=== PATIENT | male | born 1945 | race Caucasian/White ===

== ENCOUNTER 2019-02-19 00:38 | Outpatient (CLI) | payer OTHER, SELFPAY ==
--- NOTE | 2019-02-19 08:15 | DI.RAD_ITS ---
SYMPTOM/DIAGNOSIS: LT HIP PAIN, M25.552 LEFT HIP AND PELVIS: No acute fracture or dislocation is seen. The sacroiliac joints and symphysis pubis appear intact. In the left hip, there is mild subchondral sclerosis and joint space narrowing. Similar findings are seen in the right hip. The soft tissues are unremarkable. There are degenerative changes seen in the lumbosacral spine. 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
== END 2019-02-19 00:58 ==
PROVIDERS: PCP Nurse Practitioner Family; Visit Provider Internal Medicine
DX: M25.552 Pain in left hip (principal); M16.0 Bilateral primary osteoarthritis of hip
CPT/HCPCS: 73502

== ENCOUNTER 2019-09-25 10:15 | Outpatient (REF) | payer OTHER, SELFPAY ==
[2019-09-25 12:56] LABS: Anion Gap 10.3 mmol/L (3-11); BUN 38 mg/dL (7-18); CO2 25.7 mmol/L (21.0-32.0); CREATININE 1.01 mg/dL (0.70-1.30); Calcium 9.4 mg/dL (8.5-10.1); Chloride 107 mmol/L (98-107); Glucose 101 mg/dL (74-106); Sodium 143 mmol/L (136-145)
== END 2019-09-25 10:35 ==
LOC: NCHCN 10:15
PROVIDERS: PCP Internal Medicine; Visit Provider Internal Medicine
DX: I10 Essential (primary) hypertension (principal); E78.5 Hyperlipidemia, unspecified; F32.1 Major depressive disorder, single episode, moderate
CPT/HCPCS: 80048

== ENCOUNTER 2020-05-05 00:37 | Outpatient (CLI) | payer OTHER, SELFPAY ==
--- NOTE | 2020-05-05 | DI.US_ITS ---
EXAM: US ABDOMEN and U/S AAA screening CLINICAL HISTORY: ABDOMINAL PAIN R10.9 TECHNIQUE: Ultrasound abdomen performed using standard protocol. COMPARISON: US US AAA SCREENING from 05/05/2020 FINDINGS: ABDOMINAL AORTA AND IVC: Please see below PANCREAS: Normal where visualized. LIVER: Increased echogenicity consistent with fatty liver. Hepatopedal flow in the Portal Vein. GALLBLADDER: No evidence of cholelithiasis. No evidence of wall thickening. No pericholecystic fluid identified. BILIARY SYSTEM: Common bile duct measures 4.2 mm. No intrahepatic biliary ductal dilation. KWON'S SIGN: Negative. KIDNEYS: Kidneys are symmetric in size. No evidence of renal calculi. No evidence of hydronephrosis. No renal mass. 1.1 x 1.0 x 1.3 cm simple cyst in the inferior pole of the left kidney. SPLEEN: Not enlarged. ASCITES: None seen. Abdominal Aorta: Proximal: 2.2 x 2.0 cm Mid: 2.1 x 1.9 cm Distal: 1.9 x 1.7 cm Iliac's: Right: 1.2 x 1.2 cm Left: 1.2 x 1.1 cm Mild atherosclerotic disease is seen. IMPRESSION: 1. Fatty liver. 2. No evidence of an abdominal aortic aneurysm. DATA REPOSITORY:
== END 2020-05-05 00:57 ==
PROVIDERS: PCP Internal Medicine; Visit Provider Internal Medicine
DX: R10.9 Unspecified abdominal pain (principal); Z13.6 Encounter for screening for cardiovascular disorders; K76.0 Fatty (change of) liver, not elsewhere classified; N28.1 Cyst of kidney, acquired; I70.0 Atherosclerosis of aorta
CPT/HCPCS: 76706; 76700

== ENCOUNTER 2020-10-30 13:19 | Outpatient (REF) | payer OTHER, SELFPAY ==
[2020-10-30 14:47] LABS: ALT 30 U/L (16-63); AST 22 U/L (15-37); Albumin 3.7 g/dL (3.4-5.0); Alkaline Phosphatase 58 U/L (46-116); Anion Gap 8.6 mmol/L (3-11); BUN 18 mg/dL (7-18); Bilirubin, Total 0.7 mg/dL (0.2-1.0); CO2 28.4 mmol/L (21.0-32.0); CREATININE 1.04 mg/dL (0.70-1.30); Calcium 9.3 mg/dL (8.5-10.1); Calculated LDL 135 mg/dL (<100); Chloride 108 mmol/L (98-107); Cholesterol 252 mg/dL (<200); Glucose 97 mg/dL (74-106); HDL Cholesterol 98 mg/dL (40-60); Sodium 145 mmol/L (136-145); Total Protein 6.7 g/dL (6.4-8.2); Triglyceride 98 mg/dL (<150)
== END 2020-10-30 13:39 ==
LOC: NCHCN 13:19
PROVIDERS: PCP Internal Medicine; Visit Provider Internal Medicine
DX: Z00.00 Encounter for general adult medical examination without abnormal findings (principal); I10 Essential (primary) hypertension; E78.5 Hyperlipidemia, unspecified; K76.0 Fatty (change of) liver, not elsewhere classified
CPT/HCPCS: 80053; 80061

== ENCOUNTER 2021-05-04 10:35 | Outpatient (CLI) | payer OTHER, MEDICARE, SELFPAY ==
[2021-05-04 10:17] LABS: HCT 42.7 % (40.0-50.0); MCH 32.6 pg (27.0-33.0); MCHC 32.8 % (32.0-36.0); MCV 99.3 fL (80-95); MPV 9.7 fL (8.0-11.0); Platelet Count 200 10^3/uL (130-400); RDW 13.3 % (11.8-14.1); RDW-SD 48.9 fL; WBC 6.59 10^3/uL (4.4-10.8)
[2021-05-04 10:32] LABS: Anion Gap 8.4 mmol/L (3-11); BUN 30 mg/dL (7-18); CO2 29.6 mmol/L (21.0-32.0); CREATININE 1.2 mg/dL (0.70-1.30); Calcium 9.6 mg/dL (8.5-10.1); Chloride 105 mmol/L (98-107); Estimated GFR 59.35 (mL/min/1.73m2); Glucose 116 mg/dL (74-106); Potassium 3.8 mmol/L (3.5-5.1); Sodium 143 mmol/L (136-145)
[2021-05-04 10:39] LABS: Troponin I < 0.05 ng/mL (<0.06)
[2021-05-04 10:56] LABS: D-Dimer 604 ng/mlFEU (<500)
== END 2021-05-04 10:36 | disposition home or self-care (01) ==
PROVIDERS: PCP Internal Medicine; Visit Provider Internal Medicine
DX: I10 Essential (primary) hypertension (principal); E78.5 Hyperlipidemia, unspecified; K21.9 Gastro-esophageal reflux disease without esophagitis; R07.9 Chest pain, unspecified; Z72.0 Tobacco use
CPT/HCPCS: 36415; 80048; 85027; 84484; 85379

== ENCOUNTER 2021-05-04 16:02 | Outpatient (CLI) | payer OTHER, MEDICARE, SELFPAY ==
--- NOTE | 2021-05-04 10:06 | DI.RAD_ITS ---
Exam(s) XR CHEST 2V PA LATERAL EXAM: XR CHEST 2V PA LATERAL CLINICAL HISTORY: CHEST PAIN R07.9. TECHNIQUE: 2D digital imaging was performed. COMPARISON: CT CHEST WITH CONTRAST from 03/19/2016 CT CHEST WITH CONTRAST from 03/19/2016 FINDINGS: Heart size is normal. The mediastinum is not widened. Lungs are clear. No infiltrates nor pleural effusions. There is osseous variant anatomy the upper right rib cage which is developmental. IMPRESSION: No acute pulmonary findings. DATA REPOSITORY: RADIATION DOSE DELIVERED:
== END 2021-05-04 16:22 ==
PROVIDERS: PCP Internal Medicine; Visit Provider Internal Medicine
DX: R07.9 Chest pain, unspecified (principal)
CPT/HCPCS: 71046

== ENCOUNTER 2021-05-05 14:44 | Outpatient (CLI) | payer OTHER, MEDICARE, SELFPAY ==
--- NOTE | 2021-05-05 | DI.CT_ITS ---
Exam(s) CT CHEST PE CTA EXAM: CT CHEST PE CTA CLINICAL HISTORY: CHEST PAIN R07.9, ELEVATED D DIMER. TECHNIQUE: Imaging Protocol: Axial CT angiography was performed with multi-slice acquisition and mu lti-planar and/or 3D reconstructions. CONTRAST MATERIAL: Intravenous: Omnipaque 350 Contrast volume: 100 COMPARISON: CT CHEST - LUNG CANCER SCREENING from 03/08/2016 CT CHEST - LUNG CANCER SCREENING from 03/08/2016 CT CHEST WITH CONTRAST from 03/19/2016 CR XR CHEST 2V PA LATERAL from 05/04/2021 CR XR CHEST 2V PA LATERAL from 05/04/2021 FINDINGS: Pulmonary Arteries: No evidence of filling defect to suggest pulmonary emboli. Tracheobronchial tree: Patent where visualized. Mediastinum and Milady: Calcified left hilar lymph nodes, unchanged. No new adenopathy. Pulmonary parenchyma: No consolidation or dominant measurable mass. Expiratory changes. Pleura: No effusion or pneumothorax. Heart: Mild left ventricular and left atrial enlargement.. Mild coronary artery calcifications are s een. Aorta: Thoracic aorta non-dilated. Minimal calcification. Upper abdomen: Unremarkable. Bones: Right 2nd rib deformity. Degenerative disc changes. IMPRESSION: No evidence of pulmonary embolism or other acute abnormality.. RADIATION DOSE DELIVERED: 367.32mGy.cm Total DLP DATA REPOSITORY: All CT scans at this facility are submitted to the National Radiology Data Registry (NRDR) Dose Index Registry (DIR) with the [employer] (ACR). RADIATION OPTIMIZATION: All CT scans at this facility use at least one of these dose optimization te chniques: automated exposure control; mA and/or kV adjustment per patient size (includes targeted exa ms where dose is matched to clinical indication); or iterative reconstruction.
[2021-05-05] MEDS: Omnipaque 350 MG/ML 100 ML BTL IJ (14:03)
[2021-05-05] MEDS: Normal Saline - Diluent 50 ML VIAL IV (14:03)
[2021-05-05] MEDS: Normal Saline Flush 10 ML SYR IVP (14:04)
== END 2021-05-05 15:04 ==
PROVIDERS: PCP Internal Medicine; Visit Provider Internal Medicine
DX: R07.9 Chest pain, unspecified (principal); R79.89 Other specified abnormal findings of blood chemistry
CPT/HCPCS: 71275; J3490

== ENCOUNTER 2022-05-13 10:06 | Outpatient (REF) | payer OTHER, SELFPAY ==
[2022-05-13 14:50] LABS: Anion Gap 9.6 mmol/L (3-11); BUN 38 mg/dL (7-18); CO2 28.4 mmol/L (21.0-32.0); CREATININE 1.2 mg/dL (0.70-1.30); Calcium 9.5 mg/dL (8.5-10.1); Calculated LDL 117 mg/dL (<100); Chloride 105 mmol/L (98-107); Cholesterol 248 mg/dL (<200); Estimated GFR 59.18 (mL/min/1.73m2); Glucose 111 mg/dL (74-106); HDL Cholesterol 124 mg/dL (40-60); Magnesium 1.7 mg/dL (1.8-2.4); Potassium 3.6 mmol/L (3.5-5.1); Sodium 143 mmol/L (136-145); Triglyceride 36 mg/dL (<150)
[2022-05-13 22:40] LABS: PSA, Screening 1.6 ng/mL (<=6.5)
== END 2022-05-13 10:07 | disposition home or self-care (01) ==
LOC: NCHCN 10:06
PROVIDERS: PCP Internal Medicine; Visit Provider Internal Medicine
DX: I10 Essential (primary) hypertension (principal); R42 Dizziness and giddiness; J30.2 Other seasonal allergic rhinitis; G57.02 Lesion of sciatic nerve, left lower limb; Z72.0 Tobacco use; Z12.5 Encounter for screening for malignant neoplasm of prostate; N40.0 Benign prostatic hyperplasia without lower urinary tract symptoms
CPT/HCPCS: 80048; 80061; 84153; 83735

== ENCOUNTER → 2022-08-11 09:43 | Outpatient (CLI) | payer OTHER, SELFPAY ==
--- NOTE | 2022-08-11 | DI.RAD_ITS ---
Exam(s) XR HAND LT COMPLETE EXAM: XR HAND LT COMPLETE CLINICAL HISTORY: CRUSH INJURY S67.197A, LT HAND 5TH FINGER, CRUSH SWELLING BRUISING. TECHNIQUE: 2D digital imaging was performed. COMPARISON: No exams were available for comparison FINDINGS: 3 views No evidence of acute fracture nor dislocation. No abnormal soft tissue calcifications. No osseous l esions nor erosions. There are significant degenerative changes in the 1st carpometacarpal joint not ed. IMPRESSION: No fractures evident. DATA REPOSITORY: RADIATION DOSE DELIVERED:
--- OUTSIDE RECORDS SUMMARY | 2022-08-11 09:53 | XMS_ITS | Encounter Summary ---
:1945 Demographics Home Phone Preferred Language Unknown Marital Status Unknown Orthodox Affiliation Unknown Race Unknown Ethnic Group Unknown Author Organization [facility] Address [address] [place] [address] Care Team Providers Name Role Phone Unavailable Primary Care Provider Unavailable Encounter Details Date Type Department Care Team Description 05/13/2022 Lab Requisition [facility] Outr Resulting Lab, Pathology & Laboratory Provider [facility] [address] [place] [address] Social History Tobacco Use Types Packs/Day Years Used Date Never Assessed Sex Assigned at Date Recorded Not on file documented as of this encounter Plan of Treatment Not on filedocumented as of this encounter Procedures Procedure Name Priority Date/Time Associated Comments Diagnosis PSA TOTAL, Routine 05/13/2022 9:22 EDT Results for this DIAGNOSTIC procedure are i n the results section. documented in this encounter Results PSA TOTAL, DIAGNOSTIC (05/13/2022 9:22 EDT) Pathologist Sig nature PSA 1.6 <=6.5 ng/mL [facility] Specimen Blood - Venous blood (substance) Narrative [facility] - 05/13/2022 22:35 EDT NOTE: Serum PSA concentration should not be in terpreted as absolute evidence for the presence or absence of malignant disease. Assayed on Siemens ADVIA Centaur XPT usi ng chemiluminescent technology.??Values obtained by using different assay methods cannot be used interchangeably. Performing Organization Address City/State/ZIP Code Phon e Number [facility] [address] [place] [address] SERVICES documented in this encounter Visit Diagnoses Not on filedocumented in this encounter
--- OUTSIDE RECORDS SUMMARY | 2022-08-11 09:53 | XMS_ITS | Clinical Summary ---
:1945 Demographics Home Phone Preferred Language Unknown Marital Status Unknown Quaker Affiliation Unknown Race Unknown Ethnic Group Unknown Author Organization [facility] Address [address] [place] [address] Care Team Providers Name Role Phone Unavailable Primary Care Provider Unavailable Encounters Date Type Specialty Care Team Description 05/13/2022 Lab Requisition Clinical Laboratory Outr Resulting Lab , Provider from Last 3 Months Social History Tobacco Use Types Packs/Day Years Used Date Never Assessed Sex Assigned at Date Recorded Not on file Plan of Treatment Health Maintenance Due Date Last Done Comments Hepatitis C Screen 1945 COVID-19 Vaccine (#1) 04/24/1946 Fall Risk Screening 2012 Procedures Procedure Name Priority Date/Time Associated Comments Diagnosis PSA TOTAL, Routine 05/13/2022 9:22 EDT Results for this DIAGNOSTIC procedure are i n the results section. from Last 3 Months Results PSA TOTAL, DIAGNOSTIC (05/13/2022 9:22 EDT) Pathologist Sig nature PSA 1.6 <=6.5 ng/mL [facility] Specimen Blood - Venous blood (substance) Narrative [facility] - 05/13/2022 22:35 EDT NOTE: Serum PSA concentration should not be in terpreted as absolute evidence for the presence or absence of malignant disease. Assayed on Siemens ADVIA Centaur XPT usi ng chemiluminescent technology.??Values obtained by using different assay methods cannot be used interchangeably. Performing Organization Address City/State/ZIP Code Phon e Number [facility] [address] [place] [address] SERVICES from Last 3 Months
--- OUTSIDE RECORDS SUMMARY | 2022-08-11 09:53 | XMS_ITS | Encounter Summary ---
:1945 Author Organization [facility] [place] [address] Care Team Providers Name Role Phone Katty Barnett APRN Primary Care Provider [phone] Encounter Details Date Type Department Care Team Description 07/08/2016 Telephone Dermatology at [facility] Cassandra Martinez LPN [address] [place] [address] Social History Tobacco Use Types Packs/Day Years Used Date Current Every Day Smoker Sex Assigned at Date Recorded Not on file documented as of this encounter Miscellaneous Notes Telephone Encounter - Cassandra Gregorio LPN - 07/08/2016 1:23 PM EDT Nurse attempted to contact patient with Biopsy results: Two benign moles, no further treatment necessary, return to clinic, PRN. Message left. Encouraged patient to call Dr. Deal if he had any questions. documented in this encounter Plan of Treatment Not on filedocumented as of this encounter Visit Diagnoses Not on filedocumented in this encounter Care Teams Motion Picture Photographer Relationship Specialty Start Date End Date Katty Barnett APRN PCP - General Family Medicine 07/05/16 [address] [place] [address] documented as of this encounter
--- OUTSIDE RECORDS SUMMARY | 2022-08-11 09:53 | XMS_ITS | Encounter Summary ---
:1945 Author Organization [facility] [place] [address] Care Team Providers Name Role Phone Katty Barnett CRISTOBAL Primary Care Provider [phone] Reason for Visit Reason Comments Skin Check Encounter Details Date Type Department Care Team Description 07/05/2016 Office Visit Dermatology at [facility] Iglesia Deal MD Nevus [address] [facility] [address] [place] [address] DERMATOLOGY [phone] [place], [place] [address] (Wo rk) Social History Tobacco Use Types Packs/Day Years Used Date Current Every Day Smoker Sex Assigned at Date Recorded Not on file documented as of this encounter Progress Notes Iglesia Deal MD - 07/05/2016 10:00 AM EDT PROBLEM: Skin checkup. Valente is a 70-year-old gentleman who is referred today by Lazara Rincon for general skin checkup. He has had a fair amount of sun over the years, but is not aware of any personal or family history of skin cancer or melanoma. He is bothered by 2 lesions that are rough and irritated. One on the right nasal alar sill and one on the right lateral canthus. PHYSICAL EXAMINATION: Reveals a blue-eyed, fair-skinned 70-year-old gentleman who has moderate solar elastotic damage of the face. He has a fleshy papule on the right nasal alar sill consistent with probable nevus that is somewhat irritated. He has a similar lesion on the right lateral canthus. Otherwise, careful examination of the head and neck, chest and back, thighs and calves is benign. There is no evidence of malignant or premalignant lesions today. Examination also of the balding vertex and parietal scalp areas is likewise benign. ASSESSMENT AND PLAN: Benign skin examination. A. The patient was reassured about his benign skin examination. B. Reinforced sun precautions. 3. Encouraged him to wear a broad-rimmed hat when out of doors as well as use sunscreen. 2. Nevi facial. A. Site A. Right nasal alar sill. Shave biopsy was utilized to remove this irritated lesion. B. Base was lightly desiccated. 3. Tag versus nevus right lateral canthus. A. Similar shave biopsy utilized to remove this. Triple antibiotic ointment and bandage placed. Wound care advice was given. Return to clinic p.r.n. for new lesions/concerns. CC: Lazara Bess APRN documented in this encounter Plan of Treatment Not on filedocumented as of this encounter Visit Diagnoses Diagnosis Nevus Benign neoplasm of skin, site unspecifie d documented in this encounter Care Teams Supervisor Microbiology Technologists Relationship Specialty Start Date End Date Katty Barnett APRN PCP - General Family Medicine 07/05/16 [address] [place] [address] documented as of this encounter
--- OUTSIDE RECORDS SUMMARY | 2022-08-11 09:53 | XMS_ITS | Encounter Summary ---
:1945 Author Organization [facility] [place] [place] [address] Care Team Providers Name Role Phone Katty Barnett CRISTOBAL Primary Care Provider [phone] Reason for Visit Consultation (Routine) - Specialty Diagnoses / Procedures Referred By Contact Refer red To Contact Dermatology Diagnoses Skin lesion skin lesions, miltiple, report of growth Marcella Mitchell MD [facility] Dermatology [address] [place] [address] [place] [address] Fax: Referral ID Status Reason Start Date Expiration Date Visits V isits Requested Authorized [id number] Consult, Test 02/28/2018 02/28/2019 [facility] PCP Updated and/or Approved Encounter Details Date Type Department Care Team Description 05/01/2018 Office Visit Dermatology at [facility] Helen Siu MD SK (seborrheic keratosis) (Primary Dx); [facility] Screening for skin cancer; [address]; [place] [address] [facility] [place] (actinic keratosis) [phone] RD-DERMATOLOGY [place], [place] [address] Social History Tobacco Use Types Packs/Day Years Used Date Current Every Day Smoker Sex Assigned at Date Recorded Not on file documented as of this encounter Progress Notes Helen Siu MD - 05/01/2018 8:00 AM EDT DERMATOLOGY - NEW PATIENT NOTE Date of service: 05/01/2018 Ishmael Dooley : 1945, 72 y.o. Chief Complaint: Pigmented lesion and skin cancer evaluation, wart, and spot on the left posterior scalp. HPI: Ishmael Dooley is a 72 y.o. male referred by Marcella Mitchell with the following concerns: Spo ton left posterior scalp -- presnt fro 3mo. Flaked, came off. Not there anymore. Asymptomatic. R heel wart: asymptomatic. Never been treated. Wants ittreated. Aside from the aforementioned complaints, patient denies any new spot that has been growing, changing, bleeding, or symptomatic. Relevant Skin History: - Skin cancer (including type): None. Relevant Social History: Retired Doesn't wear sunscreen. Medications: Current Outpatient Prescriptions Medication Sig Dispense Refill ??? acyclovir (ZOVIRAX) 200 mg Capsule ??? citalopram (CELEXA) 10 mg Tablet ??? NEXIUM 40 mg Capsule, Delayed Release(E.C.) ??? hydrochlorothiazide (HYDRODIURIL) 25 mg Tablet ??? PROCTOZONE-HC 2.5 % Cream ??? loratadine (CLARITIN) 10 mg Tablet ??? simvastatin (ZOCOR) 40 mg Tablet ??? CIALIS 10 mg Tablet ??? FLOMAX 0.4 mg Capsule, Sust. Release 24 hr No current facility-administered medications for this visit. Allergies: No Known Allergies Review of Systems: - General: Feels well. - Skin: No other skin concerns. Examination: - Constitutional: Patient was alert, well-appearing and in no noticeable distress. - Skin: The patient was instructed to disrobe to the level of their comfort. A full body examinationwas performed, which included the head, neck, scalp, arms, hands, legs, feet, chest, back, abdomen, buttocks. Examination of the genitalia was offered but the patient declined. Diagnosis/Skin findings/Assessment/Plan: 1. Actinic keratoses: Left ear, right forehead, pink gritty papules. -Discussed the pre-malignant nature of these lesion, treatment is indicated -Discussed various treatment methods: LN2 or Efudex or PDT -Joint decision to treat with cryotherapy today Procedure Note: Number/location: 2 (location as above) Discussed procedure and expectations including risks (including risk of hypopigmentation) and benefits. Verbal consent obtained. The lesions were frozen with LN2 until the border of the lesion were clearly visible. There were no complications; the patient tolerated the procedure well. Post-procedure ex pectations and wound care were reviewed. 2. Plantar wart: Right heel, 7mm endophytic papule. -discussed viral etiology. Procedure Note: Procedure: Destruction of lesion(s) with cryotherapy. Number: 1 Location: as above Discussed procedure and expectations including risks (including risk of hypopigmentation) and benefits. Verbal consent obtained. Frozen with LN2, 15-30 second thaw time, TWICE. There were no complications; the patient tolerated the procedure well. Post-procedure expectations and wound care were reviewed. -rec OTC Mediplast 40% melvina acid. 3. Seborrheic keratosis: left postauricular scalp, 4mm brown papule. - Reassured of the benign nature of these lesions. No treatment needed. Instructed pt to monitor for changes (growing in size, changing colour) or if it becomes symptomatic, then to return to clinic for re-evaluation. # Skin Cancer Surveillance -- no growths or lesions suspicious for malignancy on the body parts examined as listed above - discussed the importance of frequently monitoring for spots that change, which include the ABCEs of melanoma features: asymmetry, irregular border, dark or changing colour, and evolution (increasing in size/diameter). If the patient noticed any of these features, in addition to bleeding, the patientwas instructed to call us for a re-evaluation - discussed the importance of sun protection/avoidance, to use SPF30+ sunscreen with reapplication at least q3hr if in the sun, or wear sun-protective clothing with UPF ratings. - discussed w/ pt that up to 50% of melanoma arise from pre-existing nevi, while the other 50% arisede rubi - recommended wearing broad-brimmed hat RTC: 1yr for FBSE. Helen Siu MD Resident in Dermatology [facility] Staff supervisor shipping room: Jose Doe MD Section of Dermatology [facility] Jose Doe MD - 05/01/2018 8:00 AM EDT I directly supervised Dr. Siu in the care of this patient. I saw and evaluated this patient with Dr. Siu. He presented the history and physical exam details to me, then we saw the patient together and I confirmed these findings. I agree with details as written. My physical examination confirms Dr. Siu's findings. The assessment and plan were formulated in discussion with me at the time of visit and I agree with them as documented. JOSE DOE MD [facility] Staff Physician documented in this encounter Plan of Treatment Not on filedocumented as of this encounter Visit Diagnoses Diagnosis SK (seborrheic keratosis) - Primary Other seborrheic keratosis Screening for skin cancer Screening for malignant neoplasm of the skin Plantar wart [place] (actinic keratosis) Actinic keratosis documented in this encounter Care Teams Gang Sawyer Relationship Specialty Start Date End Date Katty Barnett APRN PCP - General Family Medicine 07/05/16 [address] [place] [address] documented as of this encounter
== END ==
PROVIDERS: PCP Internal Medicine; Visit Provider Internal Medicine
DX: M19.042 Primary osteoarthritis, left hand (principal)
CPT/HCPCS: 73130

== ENCOUNTER → 2022-09-11 15:13 | Outpatient (CLI) | payer OTHER, SELFPAY ==
--- NOTE | 2022-09-11 15:56 | DI.RAD_ITS ---
Exam(s) XR THUMB LT EXAM: XR THUMB LT CLINICAL HISTORY: THUMB PAIN TECHNIQUE: COMPARISON: CR XR HAND LT COMPLETE from 08/11/2022 FINDINGS: Four views were obtained. There is marked degenerative change at the greater multangular 1st metacar pal joint. There is an apparent soft tissue defect of the distal aspect of the thumb. Minimal defor mity of the tuft of the distal phalanx may be present, possibility of minimal impaction fracture is n ot excluded. No major fracture identified. IMPRESSION: RADIATION DOSE DELIVERED: Total DLP
--- NOTE | 2022-09-11 16:10 | DI.VRAD_ITS ---
PROCEDURE INFORMATION: Exam: XR Left Finger(s) Exam date and time: 09/11/2022 3:51 PM Age: 76 years old Clinical indication: Injury or trauma; Crushing; Finger; Left; Patient HX: Thumb pain, thumb slammed in heavy garage door. TECHNIQUE: Imaging protocol: Radiologic exam of the Left fingers. Views: Minimum 2 views. COMPARISON: CR XR HAND LT COMPLETE 08/11/2022 10:41 AM FINDINGS: Bones/joints: Normal. Soft tissues: Normal. IMPRESSION: No evidence for fracture. Dictated and Authenticated by: Daphne Marcos MD. Ordering:CEDRIC Aguilar MD
== END ==
PROVIDERS: PCP Internal Medicine; Visit Provider Physician Assistant Medical
DX: M79.645 Pain in left finger(s) (principal); M18.12 Unilateral primary osteoarthritis of first carpometacarpal joint, left hand; M79.89 Other specified soft tissue disorders; M20.092 Other deformity of left finger(s)
CPT/HCPCS: 73140

== ENCOUNTER 2023-05-19 20:59 | Outpatient (REF) | payer OTHER, SELFPAY ==
[2023-05-19 20:26] LABS: BUN 28 mg/dL (7-18); CREATININE 1.2 mg/dL (0.70-1.30); Calcium 9.6 mg/dL (8.5-10.1); Chloride 105 mmol/L (98-107); Estimated GFR 63.07 (mL/min/1.73m2); Glucose 102 mg/dL (74-106); Potassium 4.5 mmol/L (3.5-5.1); Sodium 141 mmol/L (136-145)
== END 2023-05-19 21:00 | disposition home or self-care (01) ==
LOC: NCHCN 20:59
PROVIDERS: PCP Internal Medicine; Visit Provider Internal Medicine
DX: I10 Essential (primary) hypertension (principal); K21.9 Gastro-esophageal reflux disease without esophagitis; F32.1 Major depressive disorder, single episode, moderate
CPT/HCPCS: 80048; 83735

== ENCOUNTER 2023-05-27 00:40 | Outpatient (CLI) | payer OTHER, SELFPAY ==
--- NOTE | 2023-05-27 08:17 | DI.RAD_ITS ---
Exam(s) XR CERVICAL SPINE COMP 4-5V EXAM: XR CERVICAL SPINE COMP 4-5V CLINICAL HISTORY: ACUTE NECK PAIN, M54.2. TECHNIQUE: 2D digital imaging was performed. COMPARISON: No exams were available for comparison FINDINGS: Five views. No evidence fracture, listhesis, nor offset spinal laminar line . there is chronic advanced disc space narrowing at C4-5, C5-6, and C6-7 levels as well as at C7-T1 l evel. C2-3 and C3-4 exhibit normal disc height. There are multilevel degenerative changes facet heraclio nts. Small multilevel Luschka joint osteophytes. Bone density normal. No osseous lesions. No cerv ical ribs. IMPRESSION: Multilevel chronic degenerative disc disease as described above. No acute fracture nor listhesis. DATA REPOSITORY: RADIATION DOSE DELIVERED:
== END 2023-05-27 01:00 ==
LOC: DI 00:40
PROVIDERS: PCP Internal Medicine; Visit Provider Family Medicine
DX: M50.121 Cervical disc disorder at C4-C5 level with radiculopathy (principal); M50.122 Cervical disc disorder at C5-C6 level with radiculopathy; M50.123 Cervical disc disorder at C6-C7 level with radiculopathy
CPT/HCPCS: 72050

== ENCOUNTER 2024-05-08 18:30 | Outpatient (REF) | payer OTHER, SELFPAY ==
[2024-05-08 17:06] LABS: Calculated LDL 103 mg/dL (<100); Cholesterol 234 mg/dL (<200); HDL Cholesterol 124 mg/dL (40-60); Triglyceride 37 mg/dL (<150)
--- OUTSIDE RECORDS SUMMARY | 2024-05-08 18:38 | XMS_ITS | Encounter Summary ---
Author Organization [facility] Address [address] [facility] [place] [address] Care Team Providers Care Fisherman Helper Name Role Phone Katty Barnett APRN Primary Care Provider [phone] Encounter Details Date Type Department Care Team (Late st Contact Info) Description 07/08/2016 Telephone Dermatology at [address] [place] [address] Cassandra Mullins LPN Social History Tobacco Use Types Packs/Day Years Used Date Smoking Tobacco: Every Day Sex and Gender Information Value Date Recorded Sex Assigned at Not on file Gender Identity Not on file Sexual Orientation Not on file documented as of this encounter Miscellaneous Notes * Telephone Encounter - Cassandra Gregorio LPN - 07/08/2016 1:23 PM EDT Nurse attempted to contact patient with Biopsy results: Two benign moles, no further treatment necessary, return to clinic, PRN. Message left. Encouraged patient to call Dr. Deal if he had any questions. documented in this encounter Plan of Treatment Not on file documented as of this encounter Visit Diagnoses Not on filedocumented in this encounter Care Teams Fisherman Helper Relationship Specialty Start Date End Date Katty Barnett APRN [address] [place] [address] PCP - General Family Medicine 07/05/16 documented as of this encounter
--- OUTSIDE RECORDS SUMMARY | 2024-05-08 18:38 | XMS_ITS | Encounter Summary ---
Author Organization [facility] Address [address] [facility] [place] [place] [address] Care Team Providers Care Hydraulic Lift Driver Name Role Phone Katty Barnett CRISTOBAL Primary Care Provider [phone] Reason for Visit * Reason Comments Skin Check Encounter Details Date Type Department Care Team (Late st Contact Info) Description 07/05/2016 10:00 AM EDT Office Visit Dermatology at [address] [place] [address] Iglesia Deal MD [address] [place] [address] [place] [address] Nevus Social History Tobacco Use Types Packs/Day Years Used Date Smoking Tobacco: Every Day Sex and Gender Information Value Date Recorded Sex Assigned at Not on file Gender Identity Not on file Sexual Orientation Not on file documented as of this encounter Progress Notes * Iglesia Deal MD - 07/05/2016 10:00 AM [...] documented as of this encounter Visit Diagnoses Diagnosis Nevus Benign neoplasm of skin, site unspecified documented in this encounter Care Teams Hydraulic Lift Driver Relationship Specialty Start Date End Date Katty Barnett APRN [address] [place] [address] PCP - General Family Medicine 07/05/16 documented as of this encounter
--- OUTSIDE RECORDS SUMMARY | 2024-05-08 18:38 | XMS_ITS | Encounter Summary ---
Author Organization [facility] Address [facility] Ronna dougherty [place] [id number] Care Team Providers Care Hospitality Internship Name Role Phone Katty Barnett CRISTOBAL Primary Care Provider +1 -[phone] Reason for Visit * Consultation (Routine) - Specialty Diagnoses / Procedures Referred By Katya patel Referred To Contact Dermatology Diagnoses Skin lesion skin lesions, miltiple, report of growth Marcella Mitchell MD [address] [place] [address] [facility] Dermatology [address] [place] [address] Referral ID Status Reason Start Date Expiration Date V isits Requested Visits Authorized [id number] Consult, Test & Treat Connection Center PCP Updated and/or Approved 02/28/2018 02/28/2019 6 6 Encounter Details Date Type Department Care Team (Late st Contact Info) Description 05/01/2018 8:00 AM EDT Office Visit Dermatology at [facility] [address] [place] [phone] Helen Siu MD [facility] [address] [facility] [address] SK (seborrheic keratosis) (Primary Dx); Screening for skin cancer; Plantar wart; AK (actinic keratosis) Social History Tobacco Use Types Packs/Day Years Used Date Smoking Tobacco: Every Day Sex and Gender Information Value Date Recorded Sex Assigned at Not on file Gender Identity Not on file Sexual Orientation Not on file documented as of this encounter Progress Notes * Helen Siu MD - 05/01/2018 8:00 AM [...] level of their comfort. A full body examination was performed, which included the head, neck, scalp, [...] Post-procedure expectations and wound care were reviewed. 2. Plantar [...] these features, in addition to bleeding, the patient was instructed to call us for a re-evaluation - discussed the importance of sun protection/avoidance, to use SPF30+ sunscreen with reapplication at least q3hr if in the sun, or wear sun-protective clothing with UPF ratings. - discussed w/ pt that up to 50% of melanoma arise from pre-existing nevi, while the other 50% arise de rubi - recommended wearing broad-brimmed hat RTC: 1yr for FBSE. Helen Siu MD Resident in Dermatology [facility] Staff cable puller: Jose Doe MD Section of Dermatology [facility] * Jose Doe MD - 05/01/2018 8:00 AM [...] the time of visit and I agree withthem as documented. JOSE DOE MD [facility] Staff Physician documented in this encounter Plan of Treatment Not on file documented as of this encounter Visit Diagnoses Diagnosis SK (seborrheic keratosis)- Primary Other seborrheic keratosis Screening for skin cancer Screening for malignant neoplasm of the skin Plantar wart AK (actinic keratosis) Actinic keratosis documented in this encounter Care Teams Hospitality Internship Relationship Specialty Start Date End Date Katty Barnett APRN [address] [place] [address] PCP - General Family Medicine 07/05/16 documented as of this encounter
--- OUTSIDE RECORDS SUMMARY | 2024-05-08 18:38 | XMS_ITS | Encounter Summary ---
Author Organization [facility] Address [address] [place] [address] Care Team Providers Care Vice President Underwriting Name Role Phone Unavailable Primary Care Provider Unavailabl e Encounter Details Date Type Department Care Team (Late st Contact Info) Description 05/13/2022 Lab Requisition [facility] Pathology & Laboratory Medicine - [address] [address] Outr Resulting Lab, Provider Social History Tobacco Use Types Packs/Day Years Used Date Smoking Tobacco: Never Assessed Sex and Gender Information Value Date Recorded Sex Assigned at Not on file Gender Identity Not on file Sexual Orientation Not on file documented as of this encounter Plan of Treatment Not on file documented as of this encounter Procedures Procedure Name Priority Date/Time Associated Diagnosis Comments PSA TOTAL, DIAGNOSTIC Routine 05/13/2022 9:22 EDT documented in this encounter Results * PSA TOTAL, DIAGNOSTIC (05/13/2022 9:22 EDT) PSA 1.6 <=6.5 ng/mL 05/13/2022 22:35 EDT [facility] Blood VENOUS BLOOD / Unknown 05/13/2022 9:22 EDT 05/13/2022 21:24 EDT Narrative [facility] - 05/13/2022 22:35 EDT NOTE: Serum PSA concentration should not be interpreted as absolute evidence for the presence or absence of malignant disease. Assayed on Siemens ADVIA Centaur XPT using chemiluminescent technology.??Values obtained by using different assay methods cannot be used interchangeably. Provider Outr Resulting Lab CHEMISTRY & BLOOD GAS ORDERABLES [facility] [address] [place] [address] documented in this encounter Visit Diagnoses Not on filedocumented in this encounter
--- OUTSIDE RECORDS SUMMARY | 2024-05-08 18:38 | XMS_ITS | Referral Summary ---
Author Organization [facility] Address [address] [place] [address] Care Team Providers Care Storage Battery Inspector Name Role Phone Unavailable Primary Care Provider Unavailabl e Social History Tobacco Use Types Packs/Day Years Used Date Smoking Tobacco: Never Assessed Sex and Gender Information Value Date Recorded Sex Assigned at Not on file Gender Identity Not on file Sexual Orientation Not on file Plan of Treatment Not on file
--- OUTSIDE RECORDS SUMMARY | 2024-05-08 18:38 | XMS_ITS | Clinical Summary ---
Author Organization [facility] Address [address] [place] [address] Care Team Providers Care Last Turner Name Role Phone Unavailable Primary Care Provider Unavailabl e Social History Tobacco Use Types Packs/Day Years Used Date Smoking Tobacco: Never Assessed Sex and Gender Information Value Date Recorded Sex Assigned at Not on file Gender Identity Not on file Sexual Orientation Not on file Plan of Treatment Health Maintenance Due Date Last Done Comments Hepatitis C Screen 1945 RSV Immunization ( o r 60+ Years) (1 - 1-dose 60+ series) 2007 Fall Risk Screening 2012 COVID-19 Vaccine (2022-24 season) 2023
--- OUTSIDE RECORDS SUMMARY | 2024-05-08 18:38 | XMS_ITS | Clinical Summary ---
Author Organization [facility] Address [address] [facility] [place] [address] Care Team Providers Care Learning And Development Specialist Name Role Phone Katty Barnett CRISTOBAL Primary Care Provider +1 [phone] Allergies No known active allergies Medications Medication Sig Dispensed Refills Start Date End Date Status acyclovir (ZOVIRAX) 200 mg Capsule 03/09/2016 Active citalopram (CELEXA) 10 mg Tablet 03/09/2016 Active NEXIUM 40 mg Capsule, Delayed Release(E.C.) 03/09/2016 Active hydrochlorothiazide (HYDRODIURIL) 25 mg Tablet 03/09/2016 Active PROCTOZONE-HC 2.5 % Cream 05/18/2016 Active loratadine (CLARITIN) 10 mg Tablet 03/09/2016 Active simvastatin (ZOCOR) 40 mg Tablet 05/18/2016 Active CIALIS 10 mg Tablet 06/02/2016 Activ e FLOMAX 0.4 mg Capsule, Sust. Release 24 hr 03/09/2016 Active Active Problems Problem Noted Date Diagnosed Date Nevus 07/05/2016 Social History Tobacco Use Types Packs/Day Years Used Date Smoking Tobacco: Every Day Sex and Gender Information Value Date Recorded Sex Assigned at Not on file Gender Identity Not on file Sexual Orientation Not on file Plan of Treatment Health Maintenance Due Date Last Done Comments Hepatitis C Screening 1965 Tdap adult 1966 Tetanus vaccine 1966 Zoster vaccine (1 of 2) 1997 Advance Directive 2002 Pneumoccocal Vaccine: 65+ (1 of 1 - PCV) 2012 Covid-19 Vaccine ( - 2022-24 season) 2023 Influenza (Flu) vaccine (1 o f 1 - Influenza standard series) 06/24/2024 Care Teams Learning And Development Specialist Relationship Specialty Start Date End Date Katty Barnett APRN [address] [place] [address] PCP - General Family Medicine 07/05/16
== END 2024-05-08 18:31 | disposition home or self-care (01) ==
LOC: NCHCN 18:30
PROVIDERS: PCP Family Medicine; Visit Provider Family Medicine
DX: I10 Essential (primary) hypertension (principal); R79.89 Other specified abnormal findings of blood chemistry
CPT/HCPCS: 80061

== ENCOUNTER 2024-05-14 12:57 | Outpatient (REF) | payer OTHER, SELFPAY ==
--- OUTSIDE RECORDS SUMMARY | 2024-05-14 13:01 | XMS_ITS | Encounter Summary ---
Author Organization [facility] Address [address] [place] [address] Care Team Providers Care Distribution A Class Lineman Name Role Phone Katty Barnett APRN Primary Care Provider +1 [phone] Encounter Details Date Type Department Care Team (Late st Contact Info) Description 07/08/2016 Telephone Dermatology at [address] [place] [address] Cassandra Mullins LPN Social History [...] on filedocumented in this encounter Care Teams Distribution A Class Lineman Relationship Specialty Start Date End Date Katty Barnett APRN [address] [place] [address] PCP - General Family Medicine 07/05/16 documented as of this encounter
--- OUTSIDE RECORDS SUMMARY | 2024-05-14 13:01 | XMS_ITS | Encounter Summary ---
Author Organization [facility] Address [facility] Ronna dougherty [place] [id number] Care Team Providers Care Greenhouse Assistant Name Role Phone Katty Barnett CRISTOBAL Primary Care Provider +1 -[phone] Reason for Visit * Consultation (Routine) - Specialty Diagnoses / Procedures Referred By Katya patel Referred To Contact Dermatology Diagnoses Skin lesion skin lesions, miltiple, report of growth Marcella Mitchell MD [address] [place] [address] [facility] Dermatology [address] [place] [address] Referral ID Status Reason Start Date Expiration Date V isits Requested Visits Authorized [id number] Consult, Test & Treat Connection Center PCP Updated and/or Approved 02/28/2018 02/28/2019 6 6 Encounter Details Date Type Department Care Team (Late st Contact Info) Description 05/01/2018 8:00 AM EDT Office Visit Dermatology at [facility] [address] [place] [address] Helen Siu MD [facility] [address] [place] [address] SK (seborrheic keratosis) (Primary Dx); Screening for [...] FBSE. Helen Siu MD Resident in Dermatology [facility] Staff supermarket manager: Jose Doe MD Section of Dermatology [facility] * Jose Doe MD - 05/01/2018 8:00 [...] agree withthem as documented. JOSE DOE MD [facility] Staff Physician documented in this encounter Plan of Treatment Not on file documented as of this encounter Visit Diagnoses Diagnosis SK (seborrheic keratosis)- Primary Other seborrheic keratosis Screening for skin cancer Screening for malignant neoplasm of the skin Plantar wart AK (actinic keratosis) Actinic keratosis documented in this encounter Care Teams Greenhouse Assistant Relationship Specialty Start Date End Date Katty Barnett APRN [address] [place] [address] PCP - General Family Medicine 07/05/16 documented as of this encounter
--- OUTSIDE RECORDS SUMMARY | 2024-05-14 13:01 | XMS_ITS | Encounter Summary ---
Author Organization [facility] Address [facility] [place] [address] Care Team Providers Care Secretary Bookkeeper Name Role Phone Katty Barnett CRISTOBAL Primary Care Provider +1 -[phone] Reason for Visit * Reason Comments Skin Check Encounter Details Date Type Department Care Team (Late st Contact Info) Description 07/05/2016 10:00 AM EDT Office Visit Dermatology at [address] [place] [address] Iglesia Deal MD [address] [place] [address] [place] [address] Nevus Social History Tobacco Use Types Packs/Day [...] unspecified documented in this encounter Care Teams Secretary Bookkeeper Relationship Specialty Start Date End Date Katty Barnett APRN [address] [place] [address] PCP - General Family Medicine 07/05/16 documented as of this encounter
--- OUTSIDE RECORDS SUMMARY | 2024-05-14 13:01 | XMS_ITS | Clinical Summary ---
Author Organization [facility] Address One [facility] [place] [address] Care Team Providers Care Federal Law Clerk Name Role Phone Katty Barnett CRISTOBAL Primary Care Provider +1 -[phone] Allergies No known active allergies Medications Medication [...] - Influenza standard series) 06/24/2024 Care Teams Federal Law Clerk Relationship Specialty Start Date End Date Katty Barnett APRN [address] [place] [address] PCP - General Family Medicine 07/05/16
--- OUTSIDE RECORDS SUMMARY | 2024-05-14 13:01 | XMS_ITS | Clinical Summary ---
Author Organization [facility] Address [address] [place] [address] Care Team Providers Care Coal Yard Supervisor Name Role Phone Unavailable Primary Care Provider [...]
--- OUTSIDE RECORDS SUMMARY | 2024-05-14 13:02 | XMS_ITS | Referral Summary ---
Author Organization [facility] Address [address] [place] [address] Care Team Providers Care Testing And Regulating Technician Name Role Phone Unavailable Primary Care Provider Unavailabl e Social History Tobacco Use Types Packs/Day Years Used Date Smoking Tobacco: Never Assessed Sex and Gender Information Value Date Recorded Sex Assigned at Not on file Gender Identity Not on file Sexual Orientation Not on file Plan of Treatment Not on file
--- OUTSIDE RECORDS SUMMARY | 2024-05-14 13:02 | XMS_ITS | Encounter Summary ---
Author Organization [facility] Address [address] [place] [address] Care Team Providers Care Corrective And Manual Arts Therapist Name Role Phone Unavailable Primary Care Provider Unavailabl e Encounter Details Date Type Department Care Team (Late st Contact Info) Description 05/13/2022 Lab Requisition [facility] Pathology & Laboratory Medicine - [address] [address] Outr Resulting Lab, Provider Social History Tobacco [...] PSA 1.6 <=6.5 ng/mL 05/13/2022 22:35 EDT [facility] Blood VENOUS BLOOD / Unknown 05/13/2022 9:22 EDT 05/13/2022 21:24 EDT Narrative [facility] - 05/13/2022 22:35 EDT NOTE: Serum PSA concentration should not be interpreted as absolute evidence for the presence or absence of malignant disease. Assayed on Siemens ADVIA Centaur XPT using chemiluminescent technology.??Values obtained by using different assay methods cannot be used interchangeably. Provider Outr Resulting Lab CHEMISTRY & BLOOD GAS ORDERABLES [facility] [address] [place] [address] documented in this encounter Visit Diagnoses Not on filedocumented in this encounter
[2024-05-14 15:11] LABS: ALT 28 U/L (16-63); AST 28 U/L (15-37); Albumin 3.8 g/dL (3.4-5.0); Alkaline Phosphatase 60 U/L (46-116); Anion Gap 10.8 mmol/L (3-11); BUN 35 mg/dL (7-18); Bilirubin, Total 0.66 mg/dL (0.2-1.0); CO2 27.2 mmol/L (21.0-32.0); CREATININE 1.5 mg/dL (0.70-1.30); Chloride 106 mmol/L (98-107); Estimated GFR 47.95 (mL/min/1.73m2); Glucose 91 mg/dL (74-106); Potassium 4.4 mmol/L (3.5-5.1); Sodium 144 mmol/L (136-145); Total Protein 6.9 g/dL (6.4-8.2); Uric Acid 7.6 mg/dL (3.5-7.2)
== END 2024-05-14 12:58 | disposition home or self-care (01) ==
LOC: NCHCN 12:57
PROVIDERS: PCP Family Medicine; Visit Provider Family Medicine
DX: I10 Essential (primary) hypertension (principal); M79.671 Pain in right foot; M79.672 Pain in left foot
CPT/HCPCS: 80053; 84550

== ENCOUNTER 2024-07-16 16:43 | Outpatient (REF) | payer OTHER, SELFPAY ==
--- OUTSIDE RECORDS SUMMARY | 2024-07-16 16:44 | XMS_ITS | Encounter Summary ---
Author Organization [facility] Address One [facility] [place] [address] Care Team Providers Care Hammer Driver Name Role Phone Katty Barnett APRN Primary Care Provider +1 -[phone] Encounter Details Date Type Department Care Team (Late st Contact Info) Description 07/08/2016 Telephone Dermatology at [address] [place] [address] Cassandra Mullins LPN Social History [...] on filedocumented in this encounter Care Teams Hammer Driver Relationship Specialty Start Date End Date Katty Barnett APRN [address] [place] [address] PCP - General Family Medicine 07/05/16 documented as of this encounter
--- OUTSIDE RECORDS SUMMARY | 2024-07-16 16:44 | XMS_ITS | Encounter Summary ---
Author Organization [facility] Address [facility] Ronna dougherty [place] [id number] Care Team Providers Care Tester Waste Disposal Leakage Name Role Phone Katty Barnett CRISTOBAL Primary Care Provider +1 -[phone] Reason for Visit * Consultation (Routine) - Specialty Diagnoses / Procedures Referred By Katya patel Referred To Contact Dermatology Diagnoses Skin lesion skin lesions, miltiple, report of growth Marcella Mitchell MD [address] [place] [address] [facility] Dermatology [address] [place] [address] Referral ID Status Reason Start Date Expiration Date V isits Requested Visits Authorized [id number] Consult, Test & Treat Connection Center PCP Updated and/or Approved 02/28/2018 02/28/2019 6 6 Encounter Details Date Type Department Care Team (Late st Contact Info) Description 05/01/2018 8:00 AM EDT Office Visit Dermatology at [facility] [address] [place] [phone] Helen Siu MD [facility] [address] [place] [address] SK (seborrheic keratosis) (Primary Dx); Screening for [...] FBSE. Helen Siu MD Resident in Dermatology [facility] Staff pulp grinder feeder: Jose Doe MD Section of Dermatology [facility] * Jose Doe MD - 05/01/2018 8:00 [...] agree withthem as documented. JOSE DOE MD [facility] Staff Physician documented in this encounter Plan of Treatment Not on file documented as of this encounter Visit Diagnoses Diagnosis SK (seborrheic keratosis)- Primary Other seborrheic keratosis Screening for skin cancer Screening for malignant neoplasm of the skin Plantar wart AK (actinic keratosis) Actinic keratosis documented in this encounter Care Teams Tester Waste Disposal Leakage Relationship Specialty Start Date End Date Katty Barnett APRN [address] [place] [address] PCP - General Family Medicine 07/05/16 documented as of this encounter
--- OUTSIDE RECORDS SUMMARY | 2024-07-16 16:44 | XMS_ITS | Clinical Summary ---
Author Organization [facility] Address [address] [place] [address] Care Team Providers Care Planishing Hammer Operator Name Role Phone Unavailable Primary Care Provider [...]
--- OUTSIDE RECORDS SUMMARY | 2024-07-16 16:44 | XMS_ITS | Referral Summary ---
Author Organization [facility] Address [address] [place] [address] Care Team Providers Care Web Developer Name Role Phone Unavailable Primary Care Provider Unavailabl e Social History Tobacco Use Types Packs/Day Years Used Date Smoking Tobacco: Never Assessed Sex and Gender Information Value Date Recorded Sex Assigned at Not on file Gender Identity Not on file Sexual Orientation Not on file Plan of Treatment Not on file
--- OUTSIDE RECORDS SUMMARY | 2024-07-16 16:44 | XMS_ITS | Encounter Summary ---
Author Organization [facility] Address [address] [facility] [address] Care Team Providers Care Crew Boss Name Role Phone Katty Barnett CRISTOBAL Primary Care Provider +1 -[phone] Reason for Visit * Reason Comments Skin Check Encounter Details Date Type Department Care Team (Late st Contact Info) Description 07/05/2016 10:00 AM EDT Office Visit Dermatology at [address] [place] [address] Iglesia Deal MD [address] [facility] [place] [address] Nevus Social History Tobacco Use Types Packs/Day [...] unspecified documented in this encounter Care Teams Crew Boss Relationship Specialty Start Date End Date Katty Barnett APRN [address] [place] [address] PCP - General Family Medicine 07/05/16 documented as of this encounter
--- OUTSIDE RECORDS SUMMARY | 2024-07-16 16:44 | XMS_ITS | Clinical Summary ---
Author Organization [facility] Address One [facility] [place] [address] Care Team Providers Care Pay Clerk Name Role Phone Katty Barnett CRISTOBAL Primary Care Provider +1 -[phone] Allergies No known active allergies Medications Medication [...] Comments Hepatitis C Screening 1965 Tdap adult (Retired) 1966 Tetanus vaccine (Retired) 1966 Zoster vaccine (1 of 2) 1997 Advance Directive 2002 Pneumoccocal Vaccine: 65+ (1 of 1 - PCV) 2012 Covid-19 Vaccine (1 - 2022-24 season) 2024 Influenza (Flu) vaccine (1 o f 1 - Influenza standard series) 06/24/2024 Care Teams Pay Clerk Relationship Specialty Start Date End Date Katty Barnett APRN [address] [place] [address] PCP - General Family Medicine 07/05/16
--- OUTSIDE RECORDS SUMMARY | 2024-07-16 16:44 | XMS_ITS | Encounter Summary ---
Author Organization [facility] Address [address] [place] [address] Care Team Providers Care Commercial Baking Teacher Name Role Phone Unavailable Primary Care Provider Unavailabl e Encounter Details Date Type Department Care Team (Late st Contact Info) Description 05/13/2022 Lab Requisition [facility] Pathology & Laboratory Medicine - [address] [address] Outr Resulting Lab, Provider Social History Tobacco [...] PSA 1.6 <=6.5 ng/mL 05/13/2022 22:35 EDT [facility] Blood VENOUS BLOOD / Unknown 05/13/2022 9:22 EDT 05/13/2022 21:24 EDT Narrative [facility] - 05/13/2022 22:35 EDT NOTE: Serum PSA concentration should not be interpreted as absolute evidence for the presence or absence of malignant disease. Assayed on Siemens ADVIA Centaur XPT using chemiluminescent technology.??Values obtained by using different assay methods cannot be used interchangeably. Provider Outr Resulting Lab CHEMISTRY & BLOOD GAS ORDERABLES [facility] [address] [place] [address] documented in this encounter Visit Diagnoses Not on filedocumented in this encounter
[2024-07-16 22:12] LABS: ALT 30 U/L (16-63); AST 29 U/L (15-37); Albumin 3.9 g/dL (3.4-5.0); Alkaline Phosphatase 51 U/L (46-116); Anion Gap 9.4 mmol/L (3-11); BUN 24 mg/dL (7-18); Bilirubin, Total 0.56 mg/dL (0.2-1.0); CO2 27.6 mmol/L (21.0-32.0); CREATININE 1.2 mg/dL (0.70-1.30); Calcium 9.6 mg/dL (8.5-10.1); Chloride 103 mmol/L (98-107); Estimated GFR 62.67 (mL/min/1.73m2); Glucose 63 mg/dL (74-106); Potassium 4.7 mmol/L (3.5-5.1); Sodium 140 mmol/L (136-145); Total Protein 6.6 g/dL (6.4-8.2)
== END 2024-07-16 16:44 | disposition home or self-care (01) ==
LOC: NCHCN 16:43
PROVIDERS: PCP Family Medicine; Visit Provider Family Medicine
DX: I10 Essential (primary) hypertension (principal)
CPT/HCPCS: 80053

== ENCOUNTER 2025-05-20 14:42 | Outpatient (REF) | payer OTHER, SELFPAY ==
[2025-05-20 22:20] LABS: Abs Immature Grans 0.02 10^3/uL (0.0-0.06); HCT 35.2 % (40.0-50.0); HGB 12.0 g/dL (13.5-17.5); Immature Grans % 0.4 %; MCH 34.1 pg (27.0-33.0); MCHC 34.1 % (32.0-36.0); MCV 100 fL (80-95); MPV 10.2 fL (8.0-11.0); Platelet Count 181 10^3/uL (130-400); RBC 3.52 10^6/uL (4.36-5.78); RDW 13.8 % (11.8-14.1); RDW-SD 51.0 fL; WBC 5.20 10^3/uL (4.4-10.8)
[2025-05-20 22:34] LABS: ALT 30 U/L (16-63); AST 39 U/L (15-37); Albumin 3.8 g/dL (3.4-5.0); Alkaline Phosphatase 61 U/L (46-116); Anion Gap 8.7 mmol/L (3-11); BUN 35 mg/dL (7-18); Bilirubin, Total 0.6 mg/dL (0.2-1.0); CO2 30.3 mmol/L (21.0-32.0); Calcium 9.8 mg/dL (8.5-10.1); Chloride 105 mmol/L (98-107); Estimated GFR 69.14 (mL/min/1.73m2); Glucose 120 mg/dL (74-106); Potassium 3.3 mmol/L (3.5-5.1); Sodium 144 mmol/L (136-145); Total Protein 6.7 g/dL (6.4-8.2)
== END 2025-05-20 14:43 | disposition home or self-care (01) ==
LOC: NCHCN 14:42
PROVIDERS: PCP Family Medicine; Visit Provider Family Medicine
DX: I10 Essential (primary) hypertension (principal); K76.0 Fatty (change of) liver, not elsewhere classified
CPT/HCPCS: 80053; 85025

== ENCOUNTER 2025-10-21 16:29 | Outpatient (REF) | payer OTHER, SELFPAY ==
[2025-10-21 21:26] LABS: Glucose Negative (Negative)
[2025-10-21 21:55] LABS: HCT 37.4 % (40.0-50.0); HGB 12.8 g/dL (13.5-17.5); MCH 32.2 pg (27.0-33.0); MCHC 34.2 % (32.0-36.0); MCV 94 fL (80-95); MPV 9.8 fL (8.0-11.0); Platelet Count 239 10^3/uL (130-400); RBC 3.98 10^6/uL (4.36-5.78); RDW 13.0 % (11.8-14.1); RDW-SD 45.1 fL; WBC 5.77 10^3/uL (4.4-10.8)
[2025-10-21 22:08] LABS: ALT 22 U/L (10-49); AST 27 U/L (<34); Albumin 4.1 g/dL (3.2-5.0); Alkaline Phosphatase 61 U/L (46-116); Anion Gap 5.1 mmol/L (3-11); BUN 31 mg/dL (9-23); Bilirubin, Total 0.5 mg/dL (0.2-1.2); CO2 27.9 mmol/L (20.0-31.0); Calcium 9.3 mg/dL (8.3-10.6); Chloride 108 mmol/L (98-107); Glucose 106 mg/dL (74-106); Potassium 4.4 mmol/L (3.5-5.1); Sodium 141 mmol/L (136-145); Total Protein 6.8 g/dL (5.7-8.2)
[2025-10-21 22:10] LABS: Hemoglobin A1C 5.0 % (<5.7); TSH (W/Ref FT4) 1.80 uIU/mL (0.55-4.78)
[2025-10-22 19:09] LABS: PSA, Screening 1.2 ng/mL (<=6.5)
== END 2025-10-21 16:30 | disposition home or self-care (01) ==
LOC: NCHCN 16:29
PROVIDERS: PCP Family Medicine
DX: R35.1 Nocturia (principal); N40.1 Benign prostatic hyperplasia with lower urinary tract symptoms; Z12.5 Encounter for screening for malignant neoplasm of prostate
CPT/HCPCS: 80053; 84153; 85027; 81003; 83036; 83880; 84443